=== PATIENT | female | born 1995 ===

== ENCOUNTER 2017-07-02 13:49 | Inpatient (IN) ==
[2017-07-02] MEDS ORDERED: CITRIC ACID/SODIUM CITRATE 30 ML UDCUP PO ONE (14:36)
[2017-07-02] MEDS ORDERED: FAMOTIDINE 20 MG/2 ML VIAL IV ONE (14:36)
[2017-07-02] MEDS ORDERED: LACTATED RINGERS 1,000 ML IV SCH ×3 (15:00→19:30)
[2017-07-02 15:01] LABS: Basophils % 0.2 % (0.0-0.8); Eosinophils # 0.1 10*3/uL (0.0-0.87); Eosinophils % 0.8 % (0.00-10.9); Hematocrit 36.8 VOL% (35.7-47.0); Immature Granulocytes % 0.6 %; Immature Granulocytes Absolute 0.08 #; Lymphocytes # 1.9 10*3/uL (1.4-4.0); Lymphocytes % 15.2 % (21.3-54.2); Mean Corpuscular HGB Conc 32.6 GM/DL (32-36); Mean Corpuscular Hemoglobin 28 PG (27-34); Mean Corpuscular Volume 85.4 FL (87-102); Mean Platelet Volume 11.7 FL (9.6-12.0); Monocytes # 0.8 10*3/uL (0.11-0.8); Monocytes % 6.3 % (1.7-12.7); Neutrophils # 9.6 10*3/uL (1.4-7.4); Neutrophils % 76.9 % (38.7-73.9); Platelet Count 258 T/CUMM (130-400); Red Blood Count 4.31 MC/CUMM (3.8-5.5); Red Cell Distribution Width 14.2 % (9.3-17.3); White Blood Count 12.5 T/CUMM (4-12)
[2017-07-02] MEDS ORDERED: LACTATED RINGERS 1,000 ML IV ONE (15:45)
[2017-07-02] MEDS ORDERED: OXYTOCIN 10 UNIT/ML VIAL IM ONE (15:47)
[2017-07-02] MEDS ORDERED: OXYTOCIN/LR 30 UNIT/1,000 ML BAG IV ONE (15:47)
[2017-07-02] MEDS ORDERED: BUPIVACAINE SPINAL 0.75% 2 ML AMP SPINAL ONE (15:52)
[2017-07-02 17:27] LABS: Apearance,Urine CLEAR (Clear); Bilirubin,Urine Negative (Negative); Blood, Urine Negative (Negative); Glucose,Urine (UA) Negative (Negative); Ketones,Urine Negative (Negative); Mucus,Urine Few /LPF (Occasional); Nitrite,Urine Negative (Negative); Protein,Urine Negative; RBC,Urine 1 /HPF (0-4); Squamous Epithelial Cell,Urine Occasional /HPF (0-10); Urine Color Yellow (Yellow); Urine Specific Gravity 1.024 (1.001-1.035); WBC,Urine 1 /HPF (0-6)
[2017-07-02] MEDS ORDERED: MORPHINE 10 MG/10 ML VIAL ONE (18:48)
[2017-07-02] MEDS ORDERED: fentaNYL 100 MCG/2 ML VIAL ONE (18:48)
[2017-07-02] MEDS ORDERED: PHENYLEPHRINE 1 MG/10 ML SYRINGE IV ONE (18:49)
[2017-07-02] MEDS ORDERED: GLYCOPYRROLATE 0.4 MG/2 ML VIAL ONE (18:49)
[2017-07-02] MEDS ORDERED: diphenhydrAMINE 50 MG/1 ML VIAL IV PRN (18:58)
[2017-07-02] MEDS ORDERED: HYDROmorphone 2 MG/1 ML VIAL IV PRN (18:58)
[2017-07-02] MEDS ORDERED: hydrOXYzine HCL 25 MG/1 ML VIAL IM PRN (18:58)
[2017-07-02] MEDS ORDERED: ONDANSETRON 4 MG/2 ML VIAL IV PRN (18:58)
[2017-07-02] MEDS ORDERED: SODIUM CHLORIDE 0.9% 1,000 ML IV SCH (19:00)
[2017-07-02] MEDS ORDERED: IBUPROFEN 800 MG TABLET PO PRN (19:27)
[2017-07-02] MEDS ORDERED: SIMETHICONE CHEW 80 MG TABLET PO PRN (19:27)
[2017-07-02] MEDS ORDERED: MAGNESIUM HYDROXIDE SUSP 30 ML UDCUP PO PRN (19:27)
[2017-07-02] MEDS ORDERED: OXYTOCIN/LR 20 UNIT/1,000 ML BAG IV ONE (19:27)
[2017-07-02] MEDS ORDERED: ACETAMINOPHEN 325 MG TABLET PO PRN (19:27)
[2017-07-02] MEDS ORDERED: RHO(D) IMMUNE GLOBULIN 300 MCG SYRINGE IM ONE (19:27)
[2017-07-02 19:35] LABS: Cord Arterial Blood HCO3 19.3 MMOL/L
[2017-07-02 19:38] LABS: Cord Venous Blood HCO3 23.3 MMOL/L; Cord Venous Blood PCO2 42.6 MMHG; Cord Venous Blood PO2 29.5 MMHG
[2017-07-02] MEDS: ONDANSETRON 4 MG/2 ML VIAL IV PRN (20:44)
[2017-07-02] MEDS: DOCUSATE SODIUM 100 MG CAPSULE PO SCH (21:58)
[2017-07-03] MEDS: ONDANSETRON 4 MG/2 ML VIAL IV PRN (00:10)
[2017-07-03] MEDS: ceFAZolin 1,000 MG in SYRINGE 1 EACH IV SCH ×2 (01:32→09:12)
[2017-07-03 03:02] LABS: Basophils % 0.2 % (0.0-0.8); Eosinophils # 0.1 10*3/uL (0.0-0.87); Eosinophils % 0.3 % (0.00-10.9); Hematocrit 34.5 VOL% (35.7-47.0); Hemoglobin 11.3 GM/DL (12.0-16.0); Immature Granulocytes % 0.5 %; Immature Granulocytes Absolute 0.07 #; Lymphocytes # 1.9 10*3/uL (1.4-4.0); Lymphocytes % 12.1 % (21.3-54.2); Mean Corpuscular HGB Conc 32.8 GM/DL (32-36); Mean Corpuscular Hemoglobin 28 PG (27-34); Mean Platelet Volume 11.4 FL (9.6-12.0); Monocytes # 0.8 10*3/uL (0.11-0.8); Monocytes % 5.5 % (1.7-12.7); Neutrophils # 12.5 10*3/uL (1.4-7.4); Neutrophils % 81.4 % (38.7-73.9); Platelet Count 223 T/CUMM (130-400); Red Blood Count 4.01 MC/CUMM (3.8-5.5); Red Cell Distribution Width 14.3 % (9.3-17.3); White Blood Count 15.3 T/CUMM (4-12)
[2017-07-03] MEDS: DOCUSATE SODIUM 100 MG CAPSULE PO SCH ×2 (09:09→20:11)
[2017-07-03] MEDS: MULTIVITAMIN (PRENATAL) TABLET PO SCH (09:09)
[2017-07-03] MEDS: METOCLOPRAMIDE 10 MG/2 ML VIAL IV SCH ×2 (09:09→16:47)
[2017-07-03 11:01] LABS: Basophils % 0.2 % (0.0-0.8); Eosinophils # 0.1 10*3/uL (0.0-0.87); Eosinophils % 0.5 % (0.00-10.9); Hematocrit 35.8 VOL% (35.7-47.0); Hemoglobin 11.8 GM/DL (12.0-16.0); Immature Granulocytes % 0.5 %; Immature Granulocytes Absolute 0.07 #; Lymphocytes # 1.6 10*3/uL (1.4-4.0); Lymphocytes % 11.9 % (21.3-54.2); Mean Corpuscular Hemoglobin 28 PG (27-34); Mean Corpuscular Volume 84.2 FL (87-102); Mean Platelet Volume 12.1 FL (9.6-12.0); Monocytes # 0.9 10*3/uL (0.11-0.8); Monocytes % 6.8 % (1.7-12.7); Neutrophils # 10.6 10*3/uL (1.4-7.4); Neutrophils % 80.1 % (38.7-73.9); Platelet Count 230 T/CUMM (130-400); Red Blood Count 4.25 MC/CUMM (3.8-5.5); Red Cell Distribution Width 14.4 % (9.3-17.3); White Blood Count 13.2 T/CUMM (4-12)
[2017-07-04] MEDS: METOCLOPRAMIDE 10 MG/2 ML VIAL IV SCH ×2 (04:43→09:09)
[2017-07-04 07:45] VITALS: BP 110/56
[2017-07-04] MEDS: MULTIVITAMIN (PRENATAL) TABLET PO SCH (09:05)
[2017-07-04] MEDS: DOCUSATE SODIUM 100 MG CAPSULE PO SCH (09:05)
[2017-07-04] MEDS ORDERED: DIPH/TET/ACEL PERT BOOSTER VACCINE 0.5 ML VIAL IM ONE (10:00)
== END 2017-07-04 12:35 | disposition home or self-care (01) | DRG 765 ==
LOC: N.LDOUT 13:49 → N.LD 13:52 → N.OB 21:08
PROVIDERS: ADMIT Obstetrics & Gynecology; ATTEND Obstetrics & Gynecology
PROC: LDCSECT (ICD-10-PCS; 2017-07-02 17:00)

== ENCOUNTER 2018-07-01 05:39 | Inpatient (IN) ==
[2018-07-01] MEDS ORDERED: FAMOTIDINE 20 MG/2 ML VIAL IV ONE (05:58)
[2018-07-01] MEDS ORDERED: CITRIC ACID/SODIUM CITRATE 30 ML UDCUP PO ONE (05:58)
[2018-07-01] MEDS ORDERED: LACTATED RINGERS 1,000 ML IV SCH ×2 (06:00→10:30)
[2018-07-01 06:17] LABS: Basophils % 0.2 % (0.0-0.8); Eosinophils # 0.1 10*3/uL (0.0-0.87); Eosinophils % 0.8 % (0.00-10.9); Hematocrit 37.9 VOL% (35.7-47.0); Hemoglobin 11.8 GM/DL (12.0-16.0); Immature Granulocytes % 0.6 %; Immature Granulocytes Absolute 0.06 #; Lymphocytes # 2.4 10*3/uL (1.4-4.0); Lymphocytes % 24.3 % (21.3-54.2); Mean Corpuscular HGB Conc 31.1 GM/DL (32-36); Mean Corpuscular Volume 84.4 FL (87-102); Mean Platelet Volume 11.1 FL (9.6-12.0); Monocytes % 6.7 % (1.7-12.7); Neutrophils % 67.4 % (38.7-73.9); Platelet Count 324 T/CUMM (130-400); Red Blood Count 4.49 MC/CUMM (3.8-5.5); Red Cell Distribution Width 14.9 % (9.3-17.3)
[2018-07-01] MEDS ORDERED: ceFAZolin 3,000 MG in SYRINGE 1 EACH IV ONE (06:30)
[2018-07-01 06:45] LABS: Hypochromasia 1+; Ovalocytes Slight; Platelet Estimate Adequate
[2018-07-01] MEDS ORDERED: ROPIVACAINE 0.5% 30 ML VIAL ONE ×2 (06:54→11:46)
[2018-07-01] MEDS ORDERED: BUPIVACAINE SPINAL 0.75% 2 ML AMP SPINAL ONE ×2 (06:54→11:46)
[2018-07-01 07:20] LABS: Alanine Aminotransferase 16 U/L (13-56); Alkaline Phosphatase 145 U/L (45-117); Aspartate Amino Transferase 11 U/L (0-37); Bilirubin,Total < 0.39 MG/DL (0.2-1.0); Blood Urea Nitrogen 11 MG/DL (7-18); Calcium 8.8 MG/DL (8.5-10.1); Glucose 85 MG/DL (74-106); Osmolality,Calculated 270.8 MOS/KG (273-304); Total Protein 7.8 G/DL (6.4-8.3)
[2018-07-01] MEDS ORDERED: OXYTOCIN 10 UNIT/ML VIAL IM ONE (08:00)
[2018-07-01] MEDS ORDERED: OXYTOCIN/LR 30 UNIT/1,000 ML BAG IV ONE (08:03)
[2018-07-01] MEDS ORDERED: LACTATED RINGERS 1,000 ML IV ONE (08:15)
[2018-07-01] MEDS ORDERED: SIMETHICONE CHEW 80 MG TABLET PO PRN (10:16)
[2018-07-01] MEDS ORDERED: IBUPROFEN 800 MG TABLET PO PRN (10:16)
[2018-07-01] MEDS ORDERED: ONDANSETRON 4 MG/2 ML VIAL IV PRN (10:16)
[2018-07-01] MEDS ORDERED: OXYTOCIN/LR 20 UNIT/1,000 ML BAG IV ONE (10:16)
[2018-07-01] MEDS ORDERED: MAGNESIUM HYDROXIDE SUSP 30 ML UDCUP PO PRN (10:16)
[2018-07-01] MEDS ORDERED: ACETAMINOPHEN 325 MG TABLET PO PRN (10:16)
[2018-07-01 10:38] LABS: Cord Venous Blood HCO3 21.7 MMOL/L; Cord Venous Blood PCO2 45.3 MMHG; Cord Venous Blood PO2 35.4
[2018-07-01 10:40] LABS: Apearance,Urine CLEAR (Clear); Bilirubin,Urine Negative (Negative); Blood, Urine Negative (Negative); Glucose,Urine (UA) Negative (Negative); Ketones,Urine Negative (Negative); Mucus,Urine Occasional /LPF (Occasional); Nitrite,Urine Negative (Negative); Protein,Urine Negative; RBC,Urine 2 /HPF (0-4); Squamous Epithelial Cell,Urine Occasional /HPF (0-10); Urine Color Yellow (Yellow); Urine Specific Gravity 1.029 (1.001-1.035); Urine Urobilinogen < 2.0 EU/DL (0.2-1.0); WBC,Urine <1 /HPF (0-6)
[2018-07-01] MEDS ORDERED: RHO(D) IMMUNE GLOBULIN 300 MCG SYRINGE IM ONE (11:00)
[2018-07-01] MEDS ORDERED: ePHEDrine 50 MG/ML AMP ONE (11:45)
[2018-07-01] MEDS ORDERED: fentaNYL 100 MCG/2 ML VIAL ONE (11:45)
[2018-07-01] MEDS ORDERED: MORPHINE 10 MG/10 ML VIAL ONE (11:47)
[2018-07-01] MEDS ORDERED: ONDANSETRON 4 MG/2 ML VIAL ONE (11:47)
[2018-07-01] MEDS ORDERED: PHENYLEPHRINE 1 MG/10 ML SYRINGE IV ONE (11:47)
[2018-07-01] MEDS ORDERED: diphenhydrAMINE 50 MG/1 ML VIAL ONE (13:33)
[2018-07-01] MEDS ORDERED: diphenhydrAMINE 50 MG/1 ML VIAL IV ONE (13:35)
[2018-07-01] MEDS ORDERED: ceFAZolin 1,000 MG in SYRINGE 1 EACH IV SCH (14:00)
[2018-07-01 17:38] LABS: Basophils % 0.2 % (0.0-0.8); Hematocrit 35.6 VOL% (35.7-47.0); Immature Granulocytes % 0.8 %; Immature Granulocytes Absolute 0.14 #; Lymphocytes # 1.3 10*3/uL (1.4-4.0); Lymphocytes % 7.3 % (21.3-54.2); Mean Corpuscular HGB Conc 30.9 GM/DL (32-36); Mean Corpuscular Volume 84.6 FL (87-102); Mean Platelet Volume 12.1 FL (9.6-12.0); Monocytes % 3.1 % (1.7-12.7); Neutrophils % 88.6 % (38.7-73.9); Platelet Count 293 T/CUMM (130-400); Red Blood Count 4.21 MC/CUMM (3.8-5.5); Red Cell Distribution Width 14.6 % (9.3-17.3); White Blood Count 18.3 T/CUMM (4-12)
[2018-07-01] MEDS: ceFAZolin 1,000 MG in SYRINGE 1 EACH IV SCH (17:41)
[2018-07-01] MEDS: DOCUSATE SODIUM 100 MG CAPSULE PO SCH (22:36)
[2018-07-02] MEDS: ceFAZolin 1,000 MG in SYRINGE 1 EACH IV SCH (01:13)
[2018-07-02 05:58] LABS: Basophils % 0.1 % (0.0-0.8); Eosinophils # 0.1 10*3/uL (0.0-0.87); Eosinophils % 0.4 % (0.00-10.9); Hematocrit 30.4 VOL% (35.7-47.0); Hemoglobin 9.7 GM/DL (12.0-16.0); Immature Granulocytes % 0.4 %; Immature Granulocytes Absolute 0.06 #; Lymphocytes # 2.4 10*3/uL (1.4-4.0); Lymphocytes % 17.6 % (21.3-54.2); Mean Corpuscular HGB Conc 31.9 GM/DL (32-36); Mean Platelet Volume 12.1 FL (9.6-12.0); Monocytes % 7.2 % (1.7-12.7); Neutrophils % 74.3 % (38.7-73.9); Platelet Count 268 T/CUMM (130-400); Red Blood Count 3.62 MC/CUMM (3.8-5.5); Red Cell Distribution Width 14.5 % (9.3-17.3); White Blood Count 13.7 T/CUMM (4-12)
[2018-07-02] MEDS: DOCUSATE SODIUM 100 MG CAPSULE PO SCH ×2 (08:51→20:55)
[2018-07-02] MEDS: METOCLOPRAMIDE 10 MG TABLET PO SCH ×2 (08:51→16:00)
[2018-07-02] MEDS: FERROUS SULFATE 325 MG TABLET PO SCH (08:52)
[2018-07-02] MEDS ORDERED: MAGNESIUM CITRATE 300 ML BOTTLE PO ONE (17:38)
[2018-07-02] MEDS: MULTIVITAMIN (PRENATAL) TABLET PO SCH (18:50)
[2018-07-03] MEDS: METOCLOPRAMIDE 10 MG TABLET PO SCH (07:43)
[2018-07-03] MEDS ORDERED: ALBUTEROL 2.5 MG/3 ML NEB RESP TX PRN (09:09)
[2018-07-03] MEDS: DOCUSATE SODIUM 100 MG CAPSULE PO SCH (09:58)
[2018-07-03] MEDS: FERROUS SULFATE 325 MG TABLET PO SCH (09:58)
[2018-07-03] MEDS: MULTIVITAMIN (PRENATAL) TABLET PO SCH (09:58)
[2018-07-03 11:20] VITALS: BP 158/81
[2018-07-03] MEDS ORDERED: DIPH/TET/ACEL PERT BOOSTER VACCINE 0.5 ML VIAL IM ONE (12:39)
== END 2018-07-03 14:00 | disposition home or self-care (01) | DRG 785 ==
LOC: N.LD 05:39 → N.OB 12:54
PROVIDERS: ADMIT Obstetrics & Gynecology; ATTEND Obstetrics & Gynecology